=== PATIENT | male | born 1980 | race Caucasian/White ===

== ENCOUNTER 2016-10-27 16:17 | Emergency (ER) | payer OTHER | END 2016-10-27 20:10 | LOC: D.ER 16:17 | DX: K02.9 Dental caries, unspecified (principal); K08.89 Other specified disorders of teeth and supporting structures ==

== ENCOUNTER 2016-10-31 14:37 | Emergency (ER) | payer OTHER | END 2016-10-31 15:06 | disposition left against medical advice (07) | LOC: D.ER 14:37 | DX: S99.922A Unspecified injury of left foot, initial encounter (principal); X58.XXXA Exposure to other specified factors, initial encounter; Y93.89 Activity, other specified; Y92.89 Other specified places as the place of occurrence of the external cause ==

== ENCOUNTER 2016-11-06 19:30 | Emergency (ER) | payer OTHER ==
[2016-11-06 19:54] LABS: BASOPHILS 0.6 % (0-2); EOSINOPHILS 1.6 % (0-7); HEMATOCRIT 49.4 % (42.0-54.0); IMMATURE GRANULOCYTES 0.4 % (0-5); LYMPHOCYTES 42.2 % (15-50); MCH 32.5 pg (26.0-34.0); MCHC 34.4 g/dL (31.0-37.0); MCV 94.5 fL (80.0-100.0); MEAN PLATELET VOLUME 10.7 fL (7.4-10.4); MONOCYTES 7.5 % (2-11); NEUTROPHILS 47.7 % (40-80); RBC 5.23 10x6/uL (4.20-6.10); RDW 13.9 % (11.5-14.5); WBC 8.1 10x3/uL (4.8-10.8)
[2016-11-06 20:04] LABS: PLATELET COUNT 257 10x3/uL (130-400)
[2016-11-06 20:11] LABS: ALBUMIN 4.3 g/dL (3.4-5.0); ALKALINE PHOSPHATASE 85 U/L (46-116); ALT (SGPT) 32 U/L (10-68); BILIRUBIN - TOTAL 0.24 mg/dL (0.2-1.3); CALC OSMOLALITY 278 mosm/kg (275-300); CALCIUM 9.6 mg/dL (8.5-10.1); CARBON DIOXIDE 26.5 mmol/L (21.0-32.0); CHLORIDE - SERUM 100 mmol/L (98-107); CREATININE - SERUM 0.9 mg/dL (0.6-1.3); GLUCOSE 100 mg/dL (74-106); MAGNESIUM - SERUM 2.1 mg/dL (1.8-2.4); POTASSIUM - SERUM 4.5 mmol/L (3.5-5.1); SODIUM 139 mmol/L (136-145); UREA NITROGEN 15 mg/dL (7-18); eGFR NON AFRICAN AMERICAN > 90 mL/min (90-120)
[2016-11-06 20:18] LABS: UDS - AMPHET NEGATIVE QUAL (NEGATIVE); UDS - BARB NEGATIVE QUAL (NEGATIVE); UDS - BENZO NEGATIVE QUAL (NEGATIVE); UDS - COCAINE NEGATIVE QUAL (NEGATIVE); UDS - METH NEGATIVE QUAL (NEGATIVE); UDS - OPIATE NEGATIVE QUAL (NEGATIVE); UDS - PCP NEGATIVE QUAL (NEGATIVE); UDS - THC NEGATIVE QUAL (NEGATIVE)
[2016-11-06 20:19] LABS: APPEARANCE CLEAR (CLEAR); BILIRUBIN NEGATIVE (NEGATIVE); COLOR YELLOW (YELLOW); GLUCOSE NEGATIVE (NEGATIVE); KETONE NEGATIVE (NEGATIVE); LEUKOCYTE ESTERASE NEGATIVE (NEGATIVE); NITRITE NEGATIVE (NEGATIVE); PROTEIN NEGATIVE (NEGATIVE); SPECIFIC GRAVITY 1.015 (1.005-1.020); UROBILINOGEN NORMAL (NORMAL)
== END 2016-11-06 22:19 | disposition home or self-care (01) ==
LOC: D.ER 19:30
PROVIDERS: Emergency Medicine Emergency Medical Services
DX: F10.129 Alcohol abuse with intoxication, unspecified (principal); S93.402A Sprain of unspecified ligament of left ankle, initial encounter; X58.XXXA Exposure to other specified factors, initial encounter; Y93.89 Activity, other specified; Y92.89 Other specified places as the place of occurrence of the external cause; F17.200 Nicotine dependence, unspecified, uncomplicated

== ENCOUNTER 2016-11-22 14:53 | Emergency (ER) | payer OTHER | END 2016-11-22 19:33 | disposition home or self-care (01) | LOC: D.ER 14:53 | DX: S92.401G Displaced unspecified fracture of right great toe, subsequent encounter for fracture with delayed healing (principal); X58.XXXD Exposure to other specified factors, subsequent encounter; F17.200 Nicotine dependence, unspecified, uncomplicated; F10.10 Alcohol abuse, uncomplicated; F13.10 Sedative, hypnotic or anxiolytic abuse, uncomplicated ==

== ENCOUNTER 2016-11-28 17:53 | Emergency (ER) | payer OTHER | END 2016-11-28 22:28 | disposition home or self-care (01) | LOC: D.ER 17:53 | DX: H61.22 Impacted cerumen, left ear (principal); H92.02 Otalgia, left ear ==

== ENCOUNTER 2016-12-14 11:34 | Emergency (ER) | payer OTHER ==
[2016-12-14 12:48] LABS: UDS - AMPHET NEGATIVE QUAL (NEGATIVE); UDS - BARB NEGATIVE QUAL (NEGATIVE); UDS - BENZO POSITIVE QUAL (NEGATIVE); UDS - COCAINE NEGATIVE QUAL (NEGATIVE); UDS - METH NEGATIVE QUAL (NEGATIVE); UDS - OPIATE NEGATIVE QUAL (NEGATIVE); UDS - PCP NEGATIVE QUAL (NEGATIVE); UDS - THC NEGATIVE QUAL (NEGATIVE)
== END 2016-12-14 13:45 | disposition home or self-care (01) ==
LOC: D.ER 11:34
PROVIDERS: Nurse Practitioner Acute Care
DX: S50.11XA Contusion of right forearm, initial encounter (principal); Y04.2XXA Assault by strike against or bumped into by another person, initial encounter; Y93.89 Activity, other specified; Y92.89 Other specified places as the place of occurrence of the external cause; F10.129 Alcohol abuse with intoxication, unspecified; F17.200 Nicotine dependence, unspecified, uncomplicated

== ENCOUNTER 2017-05-05 19:40 | Emergency (ER) | payer OTHER | END 2017-05-05 20:58 | disposition home or self-care (01) | LOC: D.ER 19:40 | DX: K04.7 Periapical abscess without sinus (principal); F17.200 Nicotine dependence, unspecified, uncomplicated ==

== ENCOUNTER 2017-06-09 20:09 | Emergency (ER) | payer OTHER | END 2017-06-09 21:35 | disposition home or self-care (01) | LOC: D.ER 20:09 | DX: M79.605 Pain in left leg (principal) ==

== ENCOUNTER 2019-02-16 23:01 | Emergency (ER) | payer MEDICAID ==
[~2019-02-16] VITALS: Ht 175.3 cm; Wt 72.7 kg
[2019-02-16 23:10] VITALS: Ht 175.3 cm; Wt 72.7 kg
--- NOTE | 2019-02-16 23:19 | NUR ---
UNABLE TO ASSESS PATIENT FOR SUICIDE RISK DUE TO INTOXICATION AT THIS TIME. INFORMED CHARGE NURSE TO CALL BACK WHEN PATIENT IS ABLE TO ANSWER QUESTIONS.
[2019-02-16 23:49] LABS: HEMOGLOBIN 17.5 g/dL (13.5-17.5); LYMPHOCYTES 40.3 % (15-50); MCH 32.5 pg (26.0-34.0); MCHC 34.3 g/dL (31.0-37.0); MCV 94.8 fL (80.0-100.0); MEAN PLATELET VOLUME 10.3 fL (7.4-10.4); NEUTROPHILS 52.4 % (40-80); RBC 5.38 10x6/uL (4.20-6.10); RDW 14.3 % (11.5-14.5); WBC 6.1 10x3/uL (4.8-10.8)
[2019-02-16 23:58] LABS: UDS - AMPHET NEGATIVE QUAL (NEGATIVE); UDS - BARB NEGATIVE QUAL (NEGATIVE); UDS - BENZO NEGATIVE QUAL (NEGATIVE); UDS - COCAINE NEGATIVE QUAL (NEGATIVE); UDS - OPIATE NEGATIVE QUAL (NEGATIVE); UDS - PCP NEGATIVE QUAL (NEGATIVE); UDS - THC NEGATIVE QUAL (NEGATIVE)
[2019-02-16 23:58] LABS: PLATELET COUNT 175 10x3/uL (130-400)
[2019-02-17 00:03] LABS: ALBUMIN 3.9 g/dL (3.4-5.0); ALKALINE PHOSPHATASE 105 U/L (46-116); ALT (SGPT) 22 U/L (10-68); BILIRUBIN - TOTAL 0.21 mg/dL (0.2-1.3); CALC OSMOLALITY 281 mosm/kg (275-300); CALCIUM 8.5 mg/dL (8.5-10.1); CARBON DIOXIDE 28.1 mmol/L (21.0-32.0); CHLORIDE - SERUM 106 mmol/L (98-107); CREATININE - SERUM 0.9 mg/dL (0.6-1.3); GLUCOSE 99 mg/dL (74-106); POTASSIUM - SERUM 3.9 mmol/L (3.5-5.1); PROTEIN - SERUM 7.6 g/dL (6.4-8.2); SODIUM 143 mmol/L (136-145); UREA NITROGEN 5 mg/dL (7-18); eGFR NON AFRICAN AMERICAN > 90 mL/min (90-120)
[2019-02-17 00:03] LABS: APPEARANCE CLEAR (CLEAR); BILIRUBIN NEGATIVE (NEGATIVE); COLOR STRAW (YELLOW); GLUCOSE NEGATIVE (NEGATIVE); KETONE NEGATIVE (NEGATIVE); NITRITE NEGATIVE (NEGATIVE); PROTEIN NEGATIVE (NEGATIVE); SPECIFIC GRAVITY 1.005 (1.005-1.020); UROBILINOGEN NORMAL (NORMAL)
[2019-02-17 09:42] VITALS: BP 130/76
== END 2019-02-17 09:42 | disposition home or self-care (01) ==
LOC: D.ER 23:01
PROVIDERS: Family Medicine
DX: F10.10 Alcohol abuse, uncomplicated (principal); F10.129 Alcohol abuse with intoxication, unspecified